=== PATIENT | female | born 1925 | race Caucasian/White ===

== ENCOUNTER 2016-10-29 13:00 | Emergency (ER) | payer OTHER, MEDICARE ==
[2016-10-29 13:20] VITALS: BP 140/75; PULSE 57; TEMP 97.5; BMI 22.2
--- NOTE | 2016-10-29 13:47 | PDOC ---
History of Present Illness - General Chief Complaint: Injury Stated Complaint: RIGHT ALEXANDER WOUND Time Seen by Provider: 10/29/16 13:31 - History of Present Illness Initial Comments: 10/29/16 14:08 Chief complaint: Injury right alexander History of present illness: Patient scraped her right alexander several days ago, is worried that it might be getting infected. Denies any pain or drainage. Physical exam reveals a 2 cm healing abrasion of the right alexander. There is a small amount of devitalized skin present but no surrounding erythema, induration , or drainage suggestive of infection The wound was gently deep related with healthy granulation tissue revealed. Bacitracin, sterile 4 x 4, and Celia dressings were applied. Wound care instructions were reviewed with the patient and her son. Rest and elevation, as well as scrupulous wound care were recommended. She is to follow-up with Dr. Mota, her primary physician, for wound checks to monitor healing. Past History - Past Medical History Allergies/Adverse Reactions: Allergies Allergy/AdvReac Type Severity Reaction Status Date / Time codeine [Codeine] Allergy Severe Vomiting,NA Verified 05/15/16 10:55 USEA oxycodone HCl [From Percodan] Allergy Severe VOMITING,NA Verified 05/15/16 10:55 USEA oxycodone terephthalate Allergy Severe VOMITING,NA Verified 05/15/16 10:55 [From Percodan] USEA aspirin [From Percodan] Allergy Verified 05/15/16 10:55 dexlansoprazole AdvReac Severe Abdominal Verified 05/15/16 10:55 [From Dexilant] Pain Home Medications: Ambulatory Orders Dorzolamide HCl/Timolol Maleat [Cosopt Eye Drops] 1 gtt OS BID 12/19/12 Cholecalciferol (Vitamin D3) [Vitamin D3] 2,000 unit PO DAILY capsule 10/07/13 Bimatoprost [Lumigan] 1 drop .ROUTE ASDIR 05/15/16 Diazepam [Valium] 2.5 mg PO BID PRN 05/15/16 Olmesartan Medoxomil [Benicar -] 40 mg PO DAILY 05/15/16 Amlodipine Besylate 10 mg PO DAILY tablet 05/30/16 Valacyclovir HCl [Valtrex -] 1,000 mg PO BID 10/29/16 Anemia: No Asthma: No Cancer: No Cardiac Disorders: Yes (A-FIB, SINUS BRADYCARDIA) CVA: No COPD: No CHF: No Dementia: No Diabetes: No GI Disorders: No Disorders: No HTN: Yes Hypercholesterolemia: No Liver Disease: No Psychiatric Problems: Yes (ANXIETY) Seizures: No Thyroid Disease: No Other medical history: GLAUCOMA,VERTIGO - Surgical History Abdominal Surgery: No Appendectomy: No Cardiac Surgery: No Cholecystectomy: No Lung Surgery: No Neurologic Surgery: No Orthopedic Surgery: Yes (RIGHT ANKLE FX 2004,NO SX) - Psycho/Social/Smoking Cessation Hx Anxiety: Yes (TAKES VALIUM PRN) Suicidal Ideation: No Smoking Status: No Smoking History: Never smoked Have you smoked in the past 12 months: No Number of Cigarettes Smoked Daily: 0 Hx Alcohol Use: No Drug/Substance Use Hx: No Substance Use Type: None Hx Substance Use Treatment: No *Physical Exam - Vital Signs Last Vital Signs Temp Pulse Resp BP Pulse Ox 97.5 F L 57 L 16 140/75 100 10/29/16 13:03 10/29/16 13:03 10/29/16 13:03 10/29/16 13:03 10/29/16 13:03 *DC/Admit/Observation/Transfer Diagnosis at time of Disposition: Abrasion - Discharge Dispostion Disposition: HOME Condition at time of disposition: Improved Admit: No - Referrals Referrals: Sina Mota MD [Primary Care Provider] - 3 days - Patient Instructions Printed Discharge Instructions: DI for Abrasion Additional Instructions: Rest and elevate leg Wound care as directed. See your primary physician for a wound check in 3 days. If there is increased pain, redness, swelling, or drainage from the wound, recheck sooner, either primary physician or return to the emergency room.
== END 2016-10-29 13:50 | disposition home or self-care (01) ==
LOC: FER 13:00
DX: S80.811A Abrasion, right lower leg, initial encounter (principal); W22.8XXA Striking against or struck by other objects, initial encounter; Y93.9 Activity, unspecified; Y92.9 Unspecified place or not applicable; I10 Essential (primary) hypertension; F41.9 Anxiety disorder, unspecified; I48.91 Unspecified atrial fibrillation
CPT/HCPCS: 99282-25

== ENCOUNTER 2017-03-04 17:40 | Inpatient (IN) | payer OTHER, MEDICARE ==
--- NOTE | 2017-03-04 17:50 | PDOC ---
History of Present Illness - General History Source: Patient, EMS, Old Records Exam Limitations: No Limitations - History of Present Illness Initial Comments: 03/04/17 18:11 The patient is an 89 year old female, with a significant past medical history of hypertension, sick sinus syndrome, spinal stenosis and anxiety, who presents to the emergency department via EMS after four episodes of hemoptysis at approximately 4:30 PM this afternoon. The patient reports that she was sitting outside on her porch this afternoon and got up to take out the recycling when she began coughing up blood. She initiated EMS and was brought to the ED for further evaluation. The patient states that she has not been coughing at all in the past couple of days. She does note that she had a pacemaker placed 6 weeks ago. The patient denies fever or chills. The patient denies chest pain or shortness of breath. The patient denies back pain. The patient's grandson is at the bedside. Allergies: Codeine, Oxycodone HCl, Oxycodone Terephthalate, Aspirin, Dexlansoprazole Past Surgical History: Pacemaker Placement; Right Ankle Fx. Social History: Non-smoker. Denies alcohol or drug use. PCP: Dr. Mota Office Clerk: Dr. Almeida <Tyra Cedeño - Last Filed: 03/04/17 18:11> <Avila Shah - Last Filed: 03/04/17 18:54> - General Chief Complaint: Hemoptysis Stated Complaint: COUGHED UP BLOOD Time Seen by Provider: 03/04/17 17:49 Past History <Tyra Cedeño - Last Filed: 03/04/17 18:11> - Past Medical History Anemia: No Asthma: No Cancer: No Cardiac Disorders: Yes (A-FIB, SINUS BRADYCARDIA) CVA: No COPD: No CHF: No Dementia: No Diabetes: No GI Disorders: No Disorders: No HTN: Yes Hypercholesterolemia: No Liver Disease: No Psychiatric Problems: Yes (ANXIETY) Seizures: No Thyroid Disease: No - Surgical History Abdominal Surgery: No Appendectomy: No Cardiac Surgery: No Cholecystectomy: No Lung Surgery: No Neurologic Surgery: No Orthopedic Surgery: Yes (RIGHT ANKLE FX 2003,NO SX) - Psycho/Social/Smoking Cessation Hx Anxiety: Yes (TAKES VALIUM PRN) Suicidal Ideation: No Smoking Status: No Smoking History: Never smoked Have you smoked in the past 12 months: No Number of Cigarettes Smoked Daily: 0 Hx Alcohol Use: No Drug/Substance Use Hx: No Substance Use Type: None Hx Substance Use Treatment: No <Avila Shah - Last Filed: 03/04/17 18:54> - Past Medical History Allergies/Adverse Reactions: Allergies Allergy/AdvReac Type Severity Reaction Status Date / Time codeine [Codeine] Allergy Severe Vomiting,NA Verified 05/15/16 10:55 USEA oxycodone HCl [From Percodan] Allergy Severe VOMITING,NA Verified 05/15/16 10:55 USEA oxycodone terephthalate Allergy Severe VOMITING,NA Verified 05/15/16 10:55 [From Percodan] USEA aspirin [From Percodan] Allergy Verified 05/15/16 10:55 dexlansoprazole AdvReac Severe Abdominal Verified 05/15/16 10:55 [From Dexilant] Pain Home Medications: Ambulatory Orders Dorzolamide HCl/Timolol Maleat [Cosopt Eye Drops] 1 gtt OP OU BID 12/19/12 Cholecalciferol (Vitamin D3) [Vitamin D3] 2,000 unit PO DAILY capsule 10/07/13 Olmesartan Medoxomil [Benicar -] 40 mg PO DAILY 05/15/16 Amlodipine Besylate 10 mg PO DAILY tablet 05/30/16 Valacyclovir HCl [Valtrex -] 1,000 mg PO BID 10/29/16 Bimatoprost [Lumigan] 1 drop OP OU HS bottle 11/02/16 Carboxymethylcellulose Sodium [Thera Tears] 1 drop OP OS QID bottle 11/02/16 Review of Systems - Review of Systems Able to Perform ROS?: Yes Comments:: 03/04/17 18:10 CONSTITUTIONAL: Absent: fever, chills, diaphoresis, generalized weakness, malaise, loss of appetite HEENT: Absent: rhinorrhea, nasal congestion, throat pain, throat swelling, difficulty swallowing, mouth swelling, ear pain, eye pain, visual Changes CARDIOVASCULAR: Absent: chest pain, syncope, palpitations, irregular heart rate, lightheadedness , peripheral edema RESPIRATORY: Present: +Hemoptysis Absent: cough, shortness of breath, dyspnea with exertion, orthopnea, wheezing, stridor GASTROINTESTINAL: Absent: abdominal pain, abdominal distension, nausea, vomiting, diarrhea, constipation, melena, hematochezia GENITOURINARY: Absent: dysuria, frequency, urgency, hesitancy, hematuria, flank pain, genital pain MUSCULOSKELETAL: Absent: myalgia, arthralgia, joint swelling SKIN: Absent: rash, itching, pallor HEMATOLOGIC/IMMUNOLOGIC: Absent: easy bleeding, easy bruising, lymphadenopathy, frequent infections ENDOCRINE: Absent: unexplained weight gain, unexplained weight loss, heat intolerance, cold intolerance NEUROLOGIC: Absent: headache, focal weakness or paresthesias, dizziness, unsteady gait, seizure, mental status changes, bladder or bowel incontinence PSYCHIATRIC: Absent: anxiety, depression, suicidal or homicidal ideation, hallucinations <Tyra Cedeño - Last Filed: 03/04/17 18:11> *Physical Exam - Physical Exam Comments: 03/04/17 18:10 GENERAL: Well developed, well nourished. Awake and alert. No acute distress. HEENT: Normocephalic, atraumatic. PERRLA, EOMI. No conjunctival pallor. Sclera are non-icteric. Moist mucous membranes. Oropharynx is clear. NECK: Supple. Full ROM. No JVD. Carotid pulses 2+ and symmetric, without bruits. No thyromegaly. No lymphadenopathy. CARDIOVASCULAR: Regular rate and rhythm. 2/4 systolic ejection murmur. No rubs or gallops. Distal pulses are 2+ and symmetric. PULMONARY: Left lower lobe crackles. No evidence of respiratory distress. No wheezing, rales or rhonchi. ABDOMINAL: Soft. Non-tender. Non-distended. No rebound or guarding. No organomegaly. Normoactive bowel sounds. MUSCULOSKELETAL: Normal range of motion at all joints. No bony deformities or tenderness. No CVA tenderness. EXTREMITIES: 2+ pitting edema of the bilateral lower extremities. No cyanosis. No clubbing. No calf tenderness. SKIN: Warm and dry. Normal capillary refill. No rashes. No jaundice. NEUROLOGICAL: Alert, awake, appropriate. Cranial nerves 2-12 intact. No deficits to light touch and temperature in face, upper extremities and lower extremities. No motor deficits in the in face, upper extremities and lower extremities. Normoreflexic in the upper and lower extremities. Normal speech. Toes are downgoing bilaterally. Gait deferred. PSYCHIATRIC: Cooperative. Good eye contact. Appropriate mood and affect. <Tyra Cedeño - Last Filed: 03/04/17 18:11> Medical Decision Making - Medical Decision Making 03/04/17 18:54 Labs pending Chest x-ray done, results pending Case discussed in detail with oncoming Emergency Physician including history, physical exam and ancillary studies. Oncoming Emergency Physician has assumed care for the patient and will complete the evaluation and treatment. <Avila Shah - Last Filed: 03/04/17 18:54> *DC/Admit/Observation/Transfer - Attestations Scribe Attestion: 03/04/17 17:55 Documentation prepared by Tyra Cedeño, acting as medical transcription editor for Avila Shah MD. <Tyra Cedeño - Last Filed: 03/04/17 18:11> <Avila Shah - Last Filed: 03/04/17 18:54> Diagnosis at time of Disposition: Hemoptysis - Discharge Dispostion Condition at time of disposition: Good - Referrals Referrals: Sina Mota MD [Primary Care Provider] -
[2017-03-04 19:27] LABS: URINE APPEARANCE Clear; URINE BILIRUBIN Negative (NEGATIVE); URINE BLOOD Negative (NEGATIVE); URINE GLUCOSE (UA) Negative (NEGATIVE); URINE KETONE Negative (NEGATIVE); URINE LEUK ESTERASE Negative (NEGATIVE); URINE NITRITE Negative (NEGATIVE); URINE PROTEIN Negative (NEGATIVE); URINE UROBILINOGEN 0.2 E.U/dl (0.2-1.0)
[2017-03-04 19:28] LABS: URINE COLOR YELLOW
[2017-03-04 19:29] LABS: ACTIVATED PTT 27.9 SECONDS (24.0-38.9)
[2017-03-04 19:31] LABS: EOSINOPHIL 4.7 % (0-4.5); MCH 29.5 pg (25.7-33.7); MCHC 33.7 g/dl (32.0-36.0); MEAN CELL VOLUME 87.5 fl (80-96); MEAN PLT VOLUME 9.3 fl (7.5-11.1); NEUTROPHILS 54.5 % (42.8-82.8); PLATELET COUNT 206 K/MM3 (134-434); RDW 13.5 % (11.6-15.6); WHITE BLOOD COUNT 6.5 K/mm3 (4.0-10.8)
[2017-03-04 19:32] LABS: ALBUMIN 4.2 g/dl (3.5-5.0); ALK PHOS 64 U/L (32-92); ANION GAP 6 (8-16); CALCIUM 9.5 mg/dl (8.4-10.2); CO2 25 mmol/L (22-28); CREATININE 0.8 mg/dl (0.6-1.3); GLUCOSE,RANDOM 114 mg/dl (74-106); SGOT/AST 20 U/L (10-42); SGPT/ALT 10 U/L (10-40); TOT PROT 7.6 g/dl (6.4-8.3)
[2017-03-04 19:33] LABS: INR 1.02 (0.82-1.09); PROTHROMBIN TIME (PATIENT) 11.4 SEC (10.2-13.0)
--- NOTE | 2017-03-04 19:34 | PDOC ---
*Physical Exam - Vital Signs Last Vital Signs Temp Pulse Resp BP Pulse Ox 97.9 F 61 17 125/76 97 03/04/17 17:49 03/04/17 17:49 03/04/17 17:49 03/04/17 17:49 03/04/17 17:49 ED Treatment Course - LABORATORY CBC & Chemistry Diagram: 03/04/17 18:45 03/04/17 18:45 - ADDITIONAL ORDERS Additional order review: Laboratory Results 03/04/17 19:00 Urine Color Yellow Urine Appearance Clear Urine pH 7.0 Ur Specific [place] 1.010 Urine Protein Negative Urine Glucose (UA) Negative Urine Ketones Negative Urine Blood Negative Urine Nitrite Negative Urine Bilirubin Negative Urine Urobilinogen 0.2 e.u/dl Ur Leukocyte Esterase Negative 03/04/17 18:45 RBC 4.61 MCV 87.5 MCHC 33.7 RDW 13.5 MPV 9.3 Neutrophils % 54.5 Lymphocytes % 30.7 Monocytes % 9.1 Eosinophils % 4.7 H Basophils % 1.0 Medical Decision Making - Medical Decision Making Care of this patient received from Dr. Shah. Laboratory evaluation shows normal white blood cell count with no other significant abnormality of the CBC. Sodium is minimally depressed at 129. Otherwise, chemistry profile is unremarkable. Portable chest x-ray revealed soft tissue fullness/density in the inferior aspect of the right hilum.T8 vertebral compression fracture/kyphoplasty with partial compression T9 CT angiogram performed to fully evaluate pulmonary abnormality and to rule out pulmonary embolus. No evidence of acute pulmonary embolism seen. Area of right hilum that was full on chest x-ray appears to be related to airspace infiltrate with air bronchograms in the medial segment of the right middle lobe. No other significant abnormalities seen on CT angiogram. Azithromycin 500 mg IV/Rocephin 1 g IV ordered Because of patient's advanced age, admission warranted: Dr. Mota is patient's PMD, [facility] contacted. 03/04/17 23:33 Patient reported lightheadedness a few minutes after azithromycin IV started. Have stopped infusion of azithromycin. Will continue with Rocephin 1 g IV Case discussed with Dr. Perez and patient will be admitted to Med/Surg bed. *DC/Admit/Observation/Transfer Diagnosis at time of Disposition: Hemoptysis Pneumonia Qualifiers: Pneumonia type: due to unspecified organism Laterality: right Lung location: middle lobe of lung Qualified Code(s): J18.1 - Lobar pneumonia, unspecified organism - Discharge Dispostion Condition at time of disposition: Stable Admit: Yes - Referrals - Patient Instructions - Post Discharge Activity
[2017-03-04 19:48] LABS: BILIRUBIN,TOTAL 0.5 mg/dl (0.2-1.0)
[2017-03-04] MEDS ORDERED: CEFTRIAXONE 1 GM in DEXTROSE 5%-WATER - 50 ML IVPB ONE (23:09)
[2017-03-04] MEDS ORDERED: AZITHROMYCIN IVPB 500 MG in DEXTROSE 5%-WATER - 250 ML IVPB ONE (23:09)
[2017-03-04] MEDS ORDERED: AZITHROMYCIN 500 MG VIAL IVPB ONE (23:11)
[2017-03-04] MEDS ORDERED: cefTRIAXone SODIUM 1 GM VIAL ONE (23:11)
[2017-03-04] MEDS ORDERED: PATIENT'S OWN MEDICATION (NON-FORMULARY) (Dorzolamide Hcl/Timolol Maleat [Cosopt Eye Drops OP SCH (23:45)
[2017-03-04] MEDS ORDERED: SODIUM CHLORIDE 1,000 ML IV SCH (23:45)
--- NOTE | 2017-03-05 00:45 | HP ---
CHIEF COMPLAINT: hemoptysis PCP: [facility] HISTORY OF PRESENT ILLNESS: This is an 89 year old female with a past medical history of HTN, Afib, SSS, spinal stenosis, anxiety who presented with hemoptysis today. Pt reports that she began to cough when taking out recycling and noted blood. Pt states she had no cough earlier today or yesterday but she did have cough "the other day". Pt denies chest pain, SOB. ER course was notable for: (1) WBC 6.5 (2) Sodium 129 (3) CT chest with RML infiltrate Recent Travel: Pt denies PAST MEDICAL HISTORY: HTN sick sinus syndrome spinal stenosis anxiety atrial fibrillation PAST SURGICAL HISTORY: PPM R ankle fracture 2003 Social History: Smoking: quit age 30s, smoked at home Alcohol: pt denies Drugs: pt denies Family History: mother age 89-dementia, had CVA and colon CA father age 49, [place] no siblings 3 children, one daughter with ESRD in her 40s, on dialysis Allergies codeine [Codeine] Allergy (Severe, Verified 05/15/16 10:55) Vomiting,NAUSEA oxycodone HCl [From Percodan] Allergy (Severe, Verified 05/15/16 10:55) VOMITING,NAUSEA oxycodone terephthalate [From Percodan] Allergy (Severe, Verified 05/15/16 10:55 ) VOMITING,NAUSEA aspirin [From Percodan] Allergy (Verified 05/15/16 10:55) dexlansoprazole [From Dexilant] Adverse Reaction (Severe, Verified 05/15/16 10: 55) Abdominal Pain HOME MEDICATIONS: 3 Medication Instructions Recorded Dorzolamide HCl/Timolol Maleat 1 gtt OP OU BID 12/19/12 [Cosopt Eye Drops] Cholecalciferol (Vitamin D3) 2,000 unit PO DAILY capsule 10/07/13 [Vitamin D3] Olmesartan Medoxomil [Benicar -] 40 mg PO DAILY 05/15/16 Amlodipine Besylate 10 mg PO DAILY tablet 05/30/16 Valacyclovir HCl [Valtrex -] 1,000 mg PO BID 10/29/16 Bimatoprost [Lumigan] 1 drop OP OU HS bottle 11/02/16 Carboxymethylcellulose Sodium 1 drop OP OS QID bottle 11/02/16 [Thera Tears] REVIEW OF SYSTEMS CONSTITUTIONAL: Absent: fever, chills, diaphoresis, generalized weakness, malaise, loss of appetite, weight change HEENT: Absent: rhinorrhea, nasal congestion, throat pain, throat swelling, difficulty swallowing, mouth swelling, ear pain, eye pain, visual changes CARDIOVASCULAR: Absent: chest pain, syncope, palpitations, irregular heart rate, lightheadedness , peripheral edema RESPIRATORY: Present: cough, hemoptysis Absent: shortness of breath, dyspnea with exertion, orthopnea, wheezing, stridor GASTROINTESTINAL: Absent: abdominal pain, abdominal distension, nausea, vomiting, diarrhea, constipation, melena, hematochezia GENITOURINARY: Absent: dysuria, frequency, urgency, hesitancy, hematuria, flank pain, genital pain MUSCULOSKELETAL: Absent: myalgia, arthralgia, joint swelling, back pain, neck pain SKIN: Absent: rash, itching, pallor HEMATOLOGIC/IMMUNOLOGIC: Absent: easy bleeding, easy bruising, lymphadenopathy, frequent infections ENDOCRINE: Absent: unexplained weight gain, unexplained weight loss, heat intolerance, cold intolerance NEUROLOGIC: Absent: headache, focal weakness or paresthesias, dizziness, unsteady gait, seizure, mental status changes, bladder or bowel incontinence PSYCHIATRIC: Absent: anxiety, depression, suicidal or homicidal ideation, hallucinations. PHYSICAL EXAMINATION Vital Signs - 24 hr 3 03/04/17 03/05/17 17:49 01:11 Temperature 97.9 F Pulse Rate 61 Pulse Rate [ 60 Left] Respiratory 17 18 Rate Blood Pressure 125/76 Blood Pressure 131/73 [Left] O2 Sat by Pulse 97 98 Oximetry (%) GENERAL: Awake, alert, and fully oriented, in no acute distress. HEAD: Normal with no signs of trauma. EYES: Pupils equal, round and reactive to light, extraocular movements intact, sclera anicteric, conjunctiva clear. No lid lag. EARS, NOSE, THROAT: Ears normal, nares patent, oropharynx clear without exudates. Moist mucous membranes. NECK: Normal range of motion, supple without lymphadenopathy, JVD, or masses. LUNGS: Breath sounds equal, clear to auscultation bilaterally. No wheezes, and no crackles. No accessory muscle use. HEART: Regular rate and rhythm, normal S1 and S2 without murmur, rub or gallop. ABDOMEN: Soft, nontender, not distended, normoactive bowel sounds, no guarding, no rebound, no masses. No hepatomegaly or splenomegaly. MUSCULOSKELETAL: Normal range of motion at all joints. No bony deformities or tenderness. No CVA tenderness. UPPER EXTREMITIES: 2+ pulses, warm, well-perfused. No cyanosis. No clubbing. No peripheral edema. LOWER EXTREMITIES: 2+ pulses, warm, well-perfused. No calf tenderness. 1+ edema. NEUROLOGICAL: Cranial nerves II-XII intact. Normal speech. Normal gait. PSYCHIATRIC: Cooperative. Good eye contact. Appropriate mood and affect. SKIN: Warm, dry, normal turgor, no rashes or lesions noted, normal capillary refill. Laboratory Results - last 24 hr 3 03/04/17 03/04/17 03/04/17 18:45 18:45 18:45 WBC 6.5 RBC 4.61 Hgb 13.6 Hct 40.3 MCV 87.5 MCHC 33.7 RDW 13.5 Plt Count 206 MPV 9.3 Neutrophils % 54.5 Lymphocytes % 30.7 Monocytes % 9.1 Eosinophils % 4.7 H Basophils % 1.0 INR 1.02 PTT (Actin FS) 27.9 Sodium 129 L Potassium 3.9 Chloride 98 Carbon Dioxide 25 Anion Gap 6 L BUN 17 Creatinine 0.8 Creat Clearance w eGFR > 60 Random Glucose 114 H Calcium 9.5 Total Bilirubin 0.5 D AST 20 ALT 10 Alkaline Phosphatase 64 D Total Protein 7.6 Albumin 4.2 Urine Color Urine Appearance Urine pH Ur Specific [place] Urine Protein Urine Glucose (UA) Urine Ketones Urine Blood Urine Nitrite Urine Bilirubin Urine Urobilinogen Ur Leukocyte Esterase 3 Urine Color Yellow 03/04/17 19:00 Urine Appearance Clear 03/04/17 19:00 Urine pH 7.0 (4.5-8) 03/04/17 19:00 Ur Specific [place] 1.010 (1.005-1.025) 03/04/17 19:00 Urine Protein Negative (NEGATIVE) 03/04/17 19:00 Urine Glucose (UA) Negative (NEGATIVE) 03/04/17 19:00 Urine Ketones Negative (NEGATIVE) 03/04/17 19:00 Urine Blood Negative (NEGATIVE) 03/04/17 19:00 Urine Nitrite Negative (NEGATIVE) 03/04/17 19:00 Urine Bilirubin Negative (NEGATIVE) 03/04/17 19:00 Ur Leukocyte Esterase Negative (NEGATIVE) 03/04/17 19:00 Radiology Results EXAM: CHEST CTA DATE OF SERVICE: 2017-03-04 20:52:08.0 THIS IS A PRELIMINARY REPORT FROM IMAGING CLINICAL RESEARCH SCIENTIST. IMAGES: 568 INDICATION: Hemoptysis. PE. COMPARISON: Chest x-ray two-view from the same date compared. FINDINGS: Axial spiral CT images were obtained with administration of IV contrast and multiplanar reconstruction images were generated. Multiplanar MIP images were also generated. 85 mL of Omnipaque 350 was administered. The neck base and the visualized portion of the thyroid glands are unremarkable. Pacemaker seen. Heart size is normal without pericardial effusion. Pulmonary arteries demonstrate homogeneous opacification with IV contrast. No intraluminal filling defects are seen in the pulmonary arterial tree to indicate acute pulmonary embolism. The thoracic aorta demonstrates unremarkable course and caliber. There is no evidence of aortic aneurysm or dissection. Both lungs are mildly hyperinflated. There is airspace infiltrate with air bronchograms involving the medial segment of the right middle lobe, corresponding to the density seen on the chest x-ray in the right infrahilar region. No endobronchial lesion is seen. No intrathoracic mass or lymphadenopathy seen. No pleural effusion or pneumothorax is identified. Small hiatal hernia is seen. Multiple small low-density cystic lesions scattered in the liver is not fully characterized without delayed views. There is complete collapse of the T8 vertebra. Moderate compression fracture of T9 vertebral body is seen with prior kyphoplasty. IMPRESSION: Cardiomegaly, status post pacemaker. Right middle lobe medial segment infiltrate seen, corresponding to the chest x-ray abnormality. No evidence of pulmonary embolism, thoracic aortic dissection or lung infiltrate. Suggestion of multiple hepatic cystic lesions, not fully characterized without delayed views. Chronic compression fractures of T8 and T9. THIS DOCUMENT HAS BEEN ELECTRONICALLY SIGNED Trung Pabon MD 03/04/2017 22:58 EST EXAM: CHEST PA & LAT DATE OF SERVICE: 2017-03-04 18:19:48.0 THIS IS A PRELIMINARY REPORT FROM IMAGING CLINICAL RESEARCH SCIENTIST. IMAGES: 2 INDICATION: Cough. COMPARISON: None FINDINGS: PA and lateral views are available. Lungs are hyperinflated indicating underlying COPD. Soft tissue fullness/density is seen in the inferior aspect of the right hilum, possible infiltrate or atelectasis. Infiltrating mass is not excluded. A double lead pacemaker is seen. Heart size normal without CHF. No infiltrate, pneumothorax or pleural effusion seen. Severe peripheral compression fracture. One of the compressed fractures is from kyphoplasty. Diffuse osteopenia is seen. IMPRESSION: COPD. Pacemaker. Right infrahilar soft tissue fullness as described. Follow up repeat chest x-ray or CT suggested for comparison. THIS DOCUMENT HAS BEEN ELECTRONICALLY SIGNED Trung Pabon MD 03/04/2017 21:47 EST ASSESSMENT/PLAN: 89yF with PMH HTN, SSS s/p PPM, afib, spinal stenosis, anxiety presented to ED for hemoptysis. She has been admitted for pneumonia. Pneumonia-Community acquired - ceftriaxone 1g given in ED, became dizzy with azithromycin, same stopped - cont ceftriaxone daily Hyponatremia - NS @ 100cc/hr - urine sodium, cr, osmo ordered HTN - cont home medications, well controlled with same. - pt states she takes a baby ASA daily despite above documented allergy. will order same. anxiety - cont home lexapro, valium glaucoma - cont home gtt DVT PPX - heparin 5000u BID FEN - NS @ 100cc/hr - BMP in am - regular diet Dispo: Pt currently requires inpatient admission for management of her emergent condition. Visit type - Emergency Visit Emergency Visit: Yes ED Registration Date: 03/04/17 Care time: The patient presented to the Emergency Department on the above date and was hospitalized for further evaluation of their emergent condition. - New Patient This patient is new to me today: Yes Date on this admission: 03/05/17 - Critical Care Critical Care patient: No
[2017-03-05] MEDS ORDERED: LORazepam 1 MG TABLET PO ONE (01:52)
[2017-03-05] MEDS ORDERED: LORazepam 0.5 MG TABLET ONE (02:01)
[2017-03-05 02:45] VITALS: BMI 23.8
--- NOTE | 2017-03-05 08:34 | PN ---
Physical Exam: SUBJECTIVE: Patient seen and examined, reports feeling well, denies any chest pain or shortness of breath. OBJECTIVE: patient is a 89 year old female with a past medical history of HTN, Afib, SSS, spinal stenosis, anxiety. patient was admitted from the emergency department for emergent condition. Vital Signs Period Temp Pulse Resp BP Sys/Harris Pulse Ox Last 24 Hr 97.4 F-97.5 F 59-60 18-18 108-131/48-73 98-99 GENERAL: The patient is awake, alert, and fully oriented, in no acute distress. HEAD: Normal with no signs of trauma. EYES: PERRL, extraocular movements intact, sclera anicteric, conjunctiva clear. No ptosis. ENT: Ears normal, nares patent, oropharynx clear without exudates, moist mucous membranes. NECK: Trachea midline, full range of motion, supple. LUNGS: Breath sounds equal, clear to auscultation bilaterally, diminished to bases, no wheezes, no crackles, no accessory muscle use. HEART: Regular rate and rhythm, S1, S2 without murmur, rub or gallop. ABDOMEN: Soft, nontender, nondistended, normoactive bowel sounds, no guarding, no rebound, no hepatosplenomegaly, no masses. EXTREMITIES: 2+ pulses, warm, well-perfused, no edema. NEUROLOGICAL: Cranial nerves II through XII grossly intact. Normal speech, gait not observed. PSYCH: Normal mood, normal affect. SKIN: Warm, dry, normal turgor, no rashes or lesions noted Active Medications Generic Name Dose Route Start Last Admin Trade Name Freq PRN Reason Stop Dose Admin Amlodipine Besylate 10 mg 03/05/17 10:00 Norvasc - PO DAILY [facility] Artificial Tears 1 drop 03/05/17 10:00 Artificial Tears OS QID DAVID Aspirin 81 mg 03/05/17 10:00 Ecotrin - PO DAILY [facility] Ceftriaxone Sodium 1 gm 03/05/17 22:00 Rocephin 1gm Ivpb (Pre-Docked) IVPB HS [facility] Cholecalciferol 2,000 unit 03/05/17 10:00 Vitamin D3 - PO DAILY DAVID Diazepam 2.5 mg 03/05/17 10:00 Valium - PO DAILY DAVID Dorzolamide HCl 1 drop 03/05/17 10:00 Trusopt 2% OU BID DAVID Escitalopram Oxalate 5 mg 03/05/17 10:00 Lexapro - PO DAILY DAVID Heparin Sodium (Porcine) 5,000 unit 03/05/17 10:00 Heparin - SQ BID DAVID Sodium Chloride 1,000 mls @ 100 mls/hr 03/04/17 23:45 03/05/17 00:39 Normal Saline - IV 100 mls/hr ASDIR DAVID Administration Latanoprost 1 drop 03/06/17 22:00 Xalatan 0.005% Eye Drops - OU HS DAVID Timolol Maleate 1 drop 03/05/17 10:00 Timoptic 0.5% OU BID DAVID Valsartan 320 mg 03/05/17 10:00 Diovan - PO DAILY [facility] IMAGING CTA of chest: negative for PE, right middle lobe consolidation vs atelactasis ASSESSMENT/PLAN: 1)pulm community acquired pneumonia - continue rocephin and zithromax - pt afebrile, no leukocytosis - urine antigens ordered - keep spo2 above 92% with supplemental o2 as needed - pulmonary consulted and following 2) card hypertension - continue norvsc and diovan - b/p at goal 3) psych anxiety - cont lexapro and prn valium 4) glaucoma - cont home gtt DVT PPX - heparin 5000u BID FEN - hyponatremia likely secondary to hypovolemia, serum sodium wnl after iv hydration - NS @ 75cc/hr - BMP in am - regular diet Dispo: Pt currently requires inpatient admission for management of her emergent condition. Visit type - Emergency Visit Emergency Visit: Yes ED Registration Date: 03/04/17 Care time: The patient presented to the Emergency Department on the above date and was hospitalized for further evaluation of their emergent condition. - New Patient This patient is new to me today: No - Critical Care Critical Care patient: No - Discharge Referral Referred to [facility] Med P.C.: No
--- NOTE | 2017-03-05 08:47 | PN ---
Progress Note (short form) - Note Progress Note: PULMONARY CONSULTATION DICTATED 03/05/17 IMP RML CONSOLIDATION HEMOPTYSIS SSS S/P PPM HTN ANXIETY HYPONATREMIA PLAN IV ANTIBIOTICS INHALED BRONCHODILATORS O2 PRN QUANTIFY HEMOPTYSIS SPUTUM C+S, CYTOLOGY MONITOR LYTES,NA FLEX BRONCH IF HEMOPTYSIS PERSIST F/U CHEST CT 6-8 WKS TO DOCUMENT RESOLUTION OF INFITRATE/CONSOLIDATION DR PARKS Problem List - Problems (1) Hemoptysis Code(s): R04.2 - HEMOPTYSIS (2) Pneumonia Code(s): J18.9 - PNEUMONIA, UNSPECIFIED ORGANISM Qualifiers: Pneumonia type: due to unspecified organism Laterality: right Lung location: middle lobe of lung Qualified Code(s): J18.1 - Lobar pneumonia, unspecified organism (3) Hypertension Code(s): I10 - ESSENTIAL (PRIMARY) HYPERTENSION (4) Hyponatremia Code(s): E87.1 - HYPO-OSMOLALITY AND HYPONATREMIA
[2017-03-05 09:11] LABS: BASOPHIL 1.3 % (0-2.0); EOSINOPHIL 4.6 % (0-4.5); MCH 29.7 pg (25.7-33.7); MCHC 33.5 g/dl (32.0-36.0); MEAN CELL VOLUME 88.8 fl (80-96); MEAN PLT VOLUME 9.9 fl (7.5-11.1); NEUTROPHILS 49.9 % (42.8-82.8); PLATELET COUNT 158 K/MM3 (134-434); RDW 13.3 % (11.6-15.6); WHITE BLOOD COUNT 5.1 K/mm3 (4.0-10.8)
--- NOTE | 2017-03-05 09:17 | EKG ---
Test Reason : Blood Pressure : / mmHG Vent. Rate : 066 BPM Atrial Rate : 066 BPM P-R Int : 180 ms QRS Dur : 078 ms QT Int : 414 ms P-R-T Axes : 083 008 003 degrees QTc Int : 434 ms POOR DATA QUALITY, INTERPRETATION MAY BE ADVERSELY AFFECTED SINUS RHYTHM WHEN COMPARED WITH ECG OF 18-MAY-2016 02:49, SINUS RHYTHM HAS REPLACED ATRIAL FLUTTER LEFT POSTERIOR FASCICULAR BLOCK IS NO LONGER PRESENT Confirmed by ROSEANNE BANUELOS MD ([id number]) on 03/05/2017 9:17:25 AM Referred By: MICHI Confirmed By:ROSEANNE BANUELOS MD
[2017-03-05 09:28] LABS: CREATININE 0.7 mg/dl (0.6-1.3); GLUCOSE,RANDOM 99 mg/dl (74-106); MAGNESIUM 1.9 mg/dL (1.8-2.4); PHOSPHOROUS 3.6 mg/dl (2.5-4.6)
[2017-03-05] MEDS: ARTIFICIAL TEARS (POLYVINYL ALCOHOL 1.4%) OPTH DROPS OS SCH ×4 (09:45→21:17)
[2017-03-05] MEDS: VALSARTAN 160 MG TABLET (UD) PO SCH (09:46)
[2017-03-05] MEDS: ASPIRIN COATED 81 MG TABLET.EC PO SCH (09:49)
[2017-03-05] MEDS: HEPARIN NA (PORCINE) 5,000 UNITS/ML 1ML VIAL SQ SCH ×2 (09:50→21:11)
[2017-03-05] MEDS: ESCITALOPRAM OXALATE 10 MG TABLET (FP) PO SCH (09:50)
[2017-03-05] MEDS: amLODIPine BESYLATE 10 MG TABLET (FP) PO SCH (09:50)
[2017-03-05] MEDS: TIMOLOL 0.5% OPHTHALMIC SOL 5 ML BOTTLE OU SCH ×2 (09:50→21:18)
[2017-03-05] MEDS: DORZOLAMIDE 2% HCL OPHTHALMIC SOLUTION 10 ML BOTTLE OU SCH ×2 (09:51→21:18)
[2017-03-05] MEDS: CHOLECALCIFEROL (VITAMIN D3) 1,000 UNIT TABLET (FP) PO SCH (09:52)
[2017-03-05] MEDS ORDERED: diazePAM 5 MG TABLET PO SCH (10:00)
[2017-03-05 11:32] LABS: ANION GAP 10 (8-16); CO2 23 mmol/L (22-28)
[2017-03-05] MEDS ORDERED: ACETAMINOPHEN 325 MG TABLET (FP) PO PRN (13:33)
[2017-03-05] MEDS ORDERED: ALBUTEROL SO4 2.5/IPRATROPIUM 0.5 INH SOL 3 ML VIAL.NEB. NEB PRN (13:33)
[2017-03-05] MEDS: SODIUM CHLORIDE 1,000 ML IV SCH (14:00)
[2017-03-05] MEDS: AZITHROMYCIN 250 MG TABLET (FP) PO SCH (15:37)
--- NOTE | 2017-03-05 20:23 | CONS ---
DATE OF CONSULTATION: 03/05/2017 PULMONARY CONSULTATION REFERRING PHYSICIAN: Lizzy Allen N.P. HISTORY OF PRESENT ILLNESS: The patient is an 89-year-old white female with a past medical history of hypertension, sick sinus syndrome status post permanent pacemaker, spinal stenosis, anxiety, history of smoking many, many years ago admitted to [facility] on March 04 with complaint of 4 episodes of hemoptysis. Patient states that 2 days prior to this she had a cough which was nonproductive. On the day of admission, she states she coughed up blood. She stated it was about a teaspoon, and color bright red. She had 3 other episodes after that. She went to [facility]. She underwent a CTA of the chest which revealed right middle lobe consolidation versus atelectasis. She was admitted to the floor. She was started on antibiotic therapy. She denies any chest pain, nausea, vomiting, diaphoresis. Denies any fevers, chills, previous history of hemoptysis. Denies any COPD or asthma in the past. There is no history of recent travel, there is no history of occupational exposure to chemicals or fumes. PAST MEDICAL HISTORY: Again includes pacemaker, a sick sinus syndrome, hypertension, spinal stenosis, anxiety, history of atrial fibrillation. REVIEW OF SYSTEMS: No orthopnea. No PND. No chest pain. No palpitations. Positive cough. Positive hemoptysis. No fever . No chills. No weight loss. No night sweats. No abdominal pain. No lower extremity edema. CURRENT MEDICATIONS: Include Diovan, Rocephin, heparin, lexapro, valium, Timoptic, Trusopt, Norvasc, artificial tears, normal saline, Ecotrin, Xalatan, ceftriaxone. PHYSICAL EXAMINATION: General: The patient is an elderly white female, well-developed, alert, in no acute distress. Vital signs: She is currently afebrile. Blood pressure 108/48, respiratory rate 18, O2 saturation is 95% on room air. HEENT: Head is normocephalic, atraumatic. Neck: Supple. Heart: Regular. S1, S2. Chest: A few crackles bibasilar at the bases. Abdomen: Soft. Bowel sounds positive. Extremities: No cyanosis, edema. LABORATORY: Sodium on admission was 129 currently 139, BUN 13, creatinine 0.7. WBC is 5.1, hemoglobin 11.9, hematocrit 35.6, with platelet count of 158,000. INR is 1.02. Chest CT, there is no evidence of pulmonary embolism. There is some right middle lobe consolidation/atelectasis, no adenopathy. IMPRESSION: 1. Hemoptysis, possibly secondary to pneumonia, right middle lobe. 2. Sick sinus syndrome status post permanent pacemaker. 3. Anxiety. 4. Hypertension. PLAN: Continue antibiotic therapy, quantify his hemoptysis. Sputum for C&S, cytology. Also obtain followup chest CT in approximately 4-6 weeks to document resolution of infiltrate. If patient should develop further hemoptysis, recommend flexible bronchoscopy. EMMANUEL PARKS M.D. [facility]/[id number]
[2017-03-05] MEDS ORDERED: PT OWN MED DRAWER 7, Y5N ONE (21:07)
[2017-03-05] MEDS: cefTRIAXone 1 GM/50 ML BAG (PRE-DOCKED) IVPB SCH (21:11)
[2017-03-05] MEDS: diazePAM 5 MG TABLET PO PRN (21:11)
[2017-03-05] MEDS ORDERED: CEFTRIAXONE 1 GM in DEXTROSE 5%-WATER - 50 ML IVPB SCH (22:00)
--- NOTE | 2017-03-06 06:51 | PN ---
Progress Note, Physician History of Present Illness: PULMONARRY ALERT,HAD 2 EPISODES OF HEMOPTYSIS YESTERDAY,SO FAR NONE TODAY.PT FEELING BETTER ,-SOB - Current Medication List Current Medications: Active Medications Acetaminophen (Tylenol -) 650 mg PO Q4H PRN PRN Reason: FEVER OR PAIN Albuterol/Ipratropium (Duoneb -) 1 amp NEB Q6H PRN PRN Reason: SHORTNESS OF BREATH Last Admin: 03/05/17 14:35 Dose: 1 amp Amlodipine Besylate (Norvasc -) 10 mg PO DAILY [facility] Last Admin: 03/05/17 09:50 Dose: 10 mg Artificial Tears (Artificial Tears) 1 drop OS QID [facility] Last Admin: 03/05/17 21:17 Dose: 1 drop Aspirin (Ecotrin -) 81 mg PO DAILY [facility] Last Admin: 03/05/17 09:49 Dose: 81 mg Azithromycin (Zithromax -) 250 mg PO DAILY [facility] Stop: 03/08/17 14:00 Last Admin: 03/05/17 15:37 Dose: 250 mg Ceftriaxone Sodium (Rocephin 1gm Ivpb (Pre-Docked)) 1 gm IVPB [facility] Last Admin: 03/05/17 21:11 Dose: 1 gm Cholecalciferol (Vitamin D3 -) 2,000 unit PO DAILY [facility] Last Admin: 03/05/17 09:52 Dose: 2,000 unit Diazepam (Valium -) 2.5 mg PO DAILY PRN PRN Reason: ANXIETY Last Admin: 03/05/17 21:11 Dose: 2.5 mg Dorzolamide HCl (Trusopt 2%) 1 drop OU BID [facility] Last Admin: 03/05/17 21:18 Dose: 1 drop Escitalopram Oxalate (Lexapro -) 5 mg PO DAILY [facility] Last Admin: 03/05/17 09:50 Dose: 5 mg Heparin Sodium (Porcine) (Heparin -) 5,000 unit SQ BID [facility] Last Admin: 03/05/17 21:11 Dose: 5,000 unit Sodium Chloride (Normal Saline -) 1,000 mls @ 42 mls/hr IV ASDIR [facility] Last Admin: 03/05/17 14:00 Dose: 42 mls/hr Latanoprost (Xalatan 0.005% Eye Drops -) 1 drop OU HS [facility] Timolol Maleate (Timoptic 0.5%) 1 drop OU BID [facility] Last Admin: 03/05/17 21:18 Dose: 1 drop Valsartan (Diovan -) 320 mg PO DAILY [facility] Last Admin: 03/05/17 09:46 Dose: 320 mg - Objective Vital Signs: Vital Signs Temperature 99.1 F 03/06/17 06:00 Pulse Rate 60 03/06/17 06:00 Respiratory Rate 18 03/06/17 06:00 Blood Pressure 122/54 03/06/17 06:00 O2 Sat by Pulse Oximetry (%) 94 L 03/06/17 06:37 Constitutional: Yes: Well Nourished, Calm Eyes: Yes: WNL HENT: Yes: WNL Neck: Yes: WNL Cardiovascular: Yes: Regular Rate and Rhythm, S1, S2 Respiratory: Yes: Rales (FEW BIBASILAR CRACKLES) Gastrointestinal: Yes: Normal Bowel Sounds, Soft Extremities: Yes: WNL Edema: No Labs: Problem List - Problems (1) Hemoptysis Code(s): R04.2 - HEMOPTYSIS (2) Pneumonia Code(s): J18.9 - PNEUMONIA, UNSPECIFIED ORGANISM Qualifiers: Pneumonia type: due to unspecified organism Laterality: right Lung location: middle lobe of lung Qualified Code(s): J18.1 - Lobar pneumonia , unspecified organism (3) Hypertension Code(s): I10 - ESSENTIAL (PRIMARY) HYPERTENSION (4) Hyponatremia Code(s): E87.1 - HYPO-OSMOLALITY AND HYPONATREMIA Assessment/Plan IMP RML CONSOLIDATION HEMOPTYSIS SSS S/P PPM HTN ANXIETY HYPONATREMIA IMPROVED PLAN IV ANTIBIOTICS INHALED BRONCHODILATORS O2 PRN QUANTIFY HEMOPTYSIS FLEX BRONCH IF HEMOPTYSIS PERSIST F/U CHEST CT 6-8 WKS TO DOCUMENT RESOLUTION OF INFITRATE/CONSOLIDATION DR PARKS Problem List - Problems (1) Hemoptysis Code(s): R04.2 - HEMOPTYSIS (2) Pneumonia Code(s): J18.9 - PNEUMONIA, UNSPECIFIED ORGANISM Qualifiers: Pneumonia type: due to unspecified organism Laterality: right Lung location: middle lobe of lung Qualified Code(s): J18.1 - Lobar pneumonia, unspecified organism (3) Hypertension Code(s): I10 - ESSENTIAL (PRIMARY) HYPERTENSION (4) Hyponatremia Code(s): E87.1 - HYPO-OSMOLALITY AND HYPONATREMIA
[2017-03-06 08:54] LABS: ANION GAP 7 (8-16); CALCIUM 8.8 mg/dl (8.4-10.2); CO2 24 mmol/L (22-28); CREATININE 0.7 mg/dl (0.6-1.3); GLUCOSE,RANDOM 87 mg/dl (74-106); MAGNESIUM 1.8 mg/dL (1.8-2.4); PHOSPHOROUS 3.7 mg/dl (2.5-4.6)
[2017-03-06] MEDS: ARTIFICIAL TEARS (POLYVINYL ALCOHOL 1.4%) OPTH DROPS OS SCH ×4 (09:14→21:47)
[2017-03-06] MEDS: CHOLECALCIFEROL (VITAMIN D3) 1,000 UNIT TABLET (FP) PO SCH (09:15)
[2017-03-06] MEDS: VALSARTAN 160 MG TABLET (UD) PO SCH (09:15)
[2017-03-06] MEDS: diazePAM 5 MG TABLET PO PRN ×2 (09:16→21:44)
[2017-03-06] MEDS: AZITHROMYCIN 250 MG TABLET (FP) PO SCH (09:16)
[2017-03-06 09:32] LABS: BASOPHIL 1.2 % (0-2.0); MCH 29.9 pg (25.7-33.7); MCHC 33.6 g/dl (32.0-36.0); MEAN CELL VOLUME 88.9 fl (80-96); MEAN PLT VOLUME 9.6 fl (7.5-11.1); NEUTROPHILS 47.7 % (42.8-82.8); PLATELET COUNT 163 K/MM3 (134-434); RDW 13.2 % (11.6-15.6)
[2017-03-06] MEDS ORDERED: POTASSIUM CHLORIDE TABS 20 MEQ TABLET.ER (FP) PO ONE (09:45)
[2017-03-06] MEDS: ASPIRIN COATED 81 MG TABLET.EC PO SCH (10:04)
[2017-03-06] MEDS: HEPARIN NA (PORCINE) 5,000 UNITS/ML 1ML VIAL SQ SCH ×2 (10:04→21:46)
[2017-03-06] MEDS: TIMOLOL 0.5% OPHTHALMIC SOL 5 ML BOTTLE OU SCH ×2 (10:05→21:47)
[2017-03-06] MEDS: DORZOLAMIDE 2% HCL OPHTHALMIC SOLUTION 10 ML BOTTLE OU SCH ×2 (10:05→21:46)
[2017-03-06] MEDS: amLODIPine BESYLATE 10 MG TABLET (FP) PO SCH (10:05)
[2017-03-06] MEDS: ESCITALOPRAM OXALATE 10 MG TABLET (FP) PO SCH (10:05)
[2017-03-06] MEDS: SODIUM CHLORIDE 1,000 ML IV SCH (13:53)
--- NOTE | 2017-03-06 17:06 | PN ---
Physical Exam: SUBJECTIVE: Patient seen and examined, reports feeling better, does report 2 episodes of hemopytsis on the overnight OBJECTIVE:patient is a 89 year old female with a past medical history of HTN, Afib, SSS, spinal stenosis, anxiety. patient was admitted from the emergency department for emergent condition. Vital Signs Period Temp Pulse Resp BP Sys/Harris Pulse Ox Last 24 Hr 97.7 F-99.1 F 60-60 16-18 100-138/48-65 94-98 GENERAL: The patient is awake, alert, and fully oriented, in no acute distress. HEAD: Normal with no signs of trauma. EYES: PERRL, extraocular movements intact, sclera anicteric, conjunctiva clear. No ptosis. ENT: Ears normal, nares patent, oropharynx clear without exudates, moist mucous membranes. NECK: Trachea midline, full range of motion, supple. LUNGS: Breath sounds equal, clear to auscultation bilaterally, diminished to bases, no wheezes, no crackles, no accessory muscle use. HEART: Regular rate and rhythm, S1, S2 without murmur, rub or gallop. ABDOMEN: Soft, nontender, nondistended, normoactive bowel sounds, no guarding, no rebound, no hepatosplenomegaly, no masses. EXTREMITIES: 2+ pulses, warm, well-perfused, no edema. NEUROLOGICAL: Cranial nerves II through XII grossly intact. Normal speech, gait not observed. PSYCH: Normal mood, normal affect. SKIN: Warm, dry, normal turgor, no rashes or lesions noted Laboratory Results - last 24 hr 03/05/17 03/06/17 03/06/17 16:15 07:30 07:30 WBC 6.0 RBC 3.88 Hgb 11.6 Hct 34.4 MCV 88.9 MCHC 33.6 RDW 13.2 Plt Count 163 MPV 9.6 Neutrophils % 47.7 Lymphocytes % 38.7 Monocytes % 8.4 Eosinophils % 4.0 Basophils % 1.2 Sodium 136 Potassium 3.3 L Chloride 105 Carbon Dioxide 24 Anion Gap 7 L BUN 14 Creatinine 0.7 Random Glucose 87 Calcium 8.8 Phosphorus 3.7 Magnesium 1.8 Urine Osmolality 183 L Active Medications Generic Name Dose Route Start Last Admin Trade Name Freq PRN Reason Stop Dose Admin Acetaminophen 650 mg 03/05/17 13:33 Tylenol - PO Q4H PRN FEVER OR PAIN Albuterol/Ipratropium 1 amp 03/05/17 13:33 03/05/17 14:35 Duoneb - NEB 1 amp Q6H PRN Administration SHORTNESS OF BREATH Amlodipine Besylate 10 mg 03/05/17 10:00 03/06/17 10:05 Norvasc - PO 10 mg DAILY DAVID Administration Artificial Tears 1 drop 03/05/17 10:00 03/06/17 13:52 Artificial Tears OS 1 drop QID DAVID Administration Aspirin 81 mg 03/05/17 10:00 03/06/17 10:04 Ecotrin - PO 81 mg DAILY [facility] Administration Azithromycin 250 mg 03/05/17 13:30 03/06/17 09:16 Zithromax - PO 03/08/17 14:00 250 mg DAILY [facility]ID Administration Ceftriaxone Sodium 1 gm 03/05/17 22:00 03/05/17 21:11 Rocephin 1gm Ivpb (Pre-Docked) IVPB 1 gm HS [facility] Administration Cholecalciferol 2,000 unit 03/05/17 10:00 03/06/17 09:15 Vitamin D3 - PO 2,000 unit DAILY [facility] Administration Diazepam 2.5 mg 03/05/17 13:41 03/06/17 09:16 Valium - PO 2.5 mg DAILY PRN Administration ANXIETY Dorzolamide HCl 1 drop 03/05/17 10:00 03/06/17 10:05 Trusopt 2% OU 1 drop BID DAVID Administration Escitalopram Oxalate 5 mg 03/05/17 10:00 03/06/17 10:05 Lexapro - PO 5 mg DAILY [facility] Administration Heparin Sodium (Porcine) 5,000 unit 03/05/17 10:00 03/06/17 10:04 Heparin - SQ 5,000 unit BID DAVID Administration Sodium Chloride 1,000 mls @ 42 mls/hr 03/05/17 13:30 03/06/17 13:53 Normal Saline - IV 42 mls/hr ASDIR DAVID Administration Latanoprost 1 drop 03/06/17 22:00 Xalatan 0.005% Eye Drops - OU HS DAVID Potassium Chloride 20 meq 03/06/17 17:15 K-Dur - PO DAILY [facility] Timolol Maleate 1 drop 03/05/17 10:00 03/06/17 10:05 Timoptic 0.5% OU 1 drop BID [facility]ID Administration Valsartan 320 mg 03/05/17 10:00 03/06/17 09:15 Diovan - PO 320 mg DAILY [facility]ID Administration Microbiology 03/05/17 16:15 Urine For Antigen Detection Legionella Antigen - Final, negative 03/05/17 16:15 Urine For Antigen Detection Streptococcus pneumoniae Antigen (M - Final, negative 03/04/17 18:45 Blood - Peripheral Venous Blood Culture - Preliminary NO GROWTH OBTAINED AFTER 24 HOURS, INCUBATION TO CONTINUE FOR 4 DAYS. 03/04/17 18:30 Blood - Peripheral Venous Blood Culture - Preliminary NO GROWTH OBTAINED AFTER 24 HOURS, INCUBATION TO CONTINUE FOR 4 DAYS. IMAGING CTA of chest: negative for PE, right middle lobe consolidation vs atelactasis ASSESSMENT/PLAN: 1)pulm community acquired pneumonia - continue rocephin and zithromax - pt afebrile, no leukocytosis - urine antigens ntd - keep spo2 above 92% with supplemental o2 as needed - pulmonary consulted and following 2) card hypertension - continue norvsc and diovan - b/p at goal 3) psych anxiety - cont lexapro and prn valium 4) glaucoma - cont home gtt DVT PPX - heparin 5000u BID FEN - hyponatremia likely secondary to hypovolemia, serum sodium wnl after iv hydration - BMP in am - regular diet Dispo: Pt currently requires inpatient admission for management of her emergent condition. Visit type - Emergency Visit Emergency Visit: Yes ED Registration Date: 03/04/17 Care time: The patient presented to the Emergency Department on the above date and was hospitalized for further evaluation of their emergent condition. - New Patient This patient is new to me today: No - Critical Care Critical Care patient: No - Discharge Referral Referred to [facility] Med P.C.: No
[2017-03-06] MEDS: POTASSIUM CHLORIDE TABS 20 MEQ TABLET.ER (FP) PO SCH (17:24)
[2017-03-06] MEDS: RANITIDINE HCL 150 MG TABLET (FP) PO SCH (21:44)
[2017-03-06] MEDS: cefTRIAXone 1 GM/50 ML BAG (PRE-DOCKED) IVPB SCH (21:46)
[2017-03-06] MEDS: LATANOPROST 0.005% OPHTH SOLN 2.5ML BOTTLE OU SCH (21:47)
--- NOTE | 2017-03-07 07:31 | PN ---
Progress Note, Physician History of Present Illness: PULMONARY ALERT,FEELING BETTER,+ TRACE HEMOPTYSIS (DARK HEME) - Current Medication List Current Medications: Active Medications Acetaminophen (Tylenol -) 650 mg PO Q4H PRN PRN Reason: FEVER OR PAIN Albuterol/Ipratropium (Duoneb -) 1 amp NEB Q6H PRN PRN Reason: SHORTNESS OF BREATH Last Admin: 03/05/17 14:35 Dose: 1 amp Amlodipine Besylate (Norvasc -) 10 mg PO DAILY [facility] Last Admin: 03/06/17 10:05 Dose: 10 mg Artificial Tears (Artificial Tears) 1 drop OS QID [facility] Last Admin: 03/06/17 21:47 Dose: 1 drop Aspirin (Ecotrin -) 81 mg PO DAILY [facility] Last Admin: 03/06/17 10:04 Dose: 81 mg Azithromycin (Zithromax -) 250 mg PO DAILY [facility] Stop: 03/08/17 14:00 Last Admin: 03/06/17 09:16 Dose: 250 mg Ceftriaxone Sodium (Rocephin 1gm Ivpb (Pre-Docked)) 1 gm IVPB [facility] Last Admin: 03/06/17 21:46 Dose: 1 gm Cholecalciferol (Vitamin D3 -) 2,000 unit PO DAILY [facility] Last Admin: 03/06/17 09:15 Dose: 2,000 unit Diazepam (Valium -) 2.5 mg PO DAILY PRN PRN Reason: ANXIETY Last Admin: 03/06/17 21:44 Dose: 2.5 mg Dorzolamide HCl (Trusopt 2%) 1 drop OU BID [facility] Last Admin: 03/06/17 21:46 Dose: 1 drop Escitalopram Oxalate (Lexapro -) 5 mg PO DAILY [facility] Last Admin: 03/06/17 10:05 Dose: 5 mg Heparin Sodium (Porcine) (Heparin -) 5,000 unit SQ BID [facility] Last Admin: 03/06/17 21:46 Dose: 5,000 unit Latanoprost (Xalatan 0.005% Eye Drops -) 1 drop OU HS [facility] Last Admin: 03/06/17 21:47 Dose: 1 drop Potassium Chloride (K-Dur -) 20 meq PO DAILY [facility] Last Admin: 03/06/17 17:24 Dose: 20 meq Ranitidine HCl (Zantac -) 150 mg PO BID [facility] Last Admin: 03/06/17 21:44 Dose: 150 mg Timolol Maleate (Timoptic 0.5%) 1 drop OU BID [facility] Last Admin: 03/06/17 21:47 Dose: 1 drop Valsartan (Diovan -) 320 mg PO DAILY [facility] Last Admin: 03/06/17 09:15 Dose: 320 mg - Objective Vital Signs: Vital Signs Temperature 98.1 F 03/07/17 06:00 Pulse Rate 58 L 03/07/17 06:00 Respiratory Rate 19 03/07/17 06:00 Blood Pressure 118/42 03/07/17 06:00 O2 Sat by Pulse Oximetry (%) 99 03/07/17 06:44 Constitutional: Yes: Well Nourished, Calm Eyes: Yes: WNL HENT: Yes: WNL Neck: Yes: WNL Cardiovascular: Yes: Regular Rate and Rhythm, S1, S2 Respiratory: Yes: Rales (FEW BIBASILAR CRACKLES) Gastrointestinal: Yes: Normal Bowel Sounds, Soft Extremities: Yes: WNL Edema: No Labs: CBC, BMP 03/06/17 07:30 03/06/17 07:30 INR, PTT INR 1.02 (0.82-1.09) 03/04/17 18:45 Problem List - Problems (1) Hemoptysis Code(s): R04.2 - HEMOPTYSIS (2) Pneumonia Code(s): J18.9 - PNEUMONIA, UNSPECIFIED ORGANISM Qualifiers: Pneumonia type: due to unspecified organism Laterality: right Lung location: middle lobe of lung Qualified Code(s): J18.1 - Lobar pneumonia , unspecified organism (3) Hypertension Code(s): I10 - ESSENTIAL (PRIMARY) HYPERTENSION (4) Hyponatremia Code(s): E87.1 - HYPO-OSMOLALITY AND HYPONATREMIA Assessment/Plan IMP RML CONSOLIDATION HEMOPTYSIS IMPROVING SSS S/P PPM HTN ANXIETY HYPONATREMIA IMPROVED PLAN ANTIBIOTICS INHALED BRONCHODILATORS O2 PRN FLEX BRONCH IF HEMOPTYSIS PERSIST F/U CHEST CT 6-8 WKS TO DOCUMENT RESOLUTION OF INFILTRATE/CONSOLIDATION DR PARKS Problem List - Problems (1) Hemoptysis Code(s): R04.2 - HEMOPTYSIS (2) Pneumonia Code(s): J18.9 - PNEUMONIA, UNSPECIFIED ORGANISM Qualifiers: Pneumonia type: due to unspecified organism Laterality: right Lung location: middle lobe of lung Qualified Code(s): J18.1 - Lobar pneumonia, unspecified organism (3) Hypertension Code(s): I10 - ESSENTIAL (PRIMARY) HYPERTENSION (4) Hyponatremia Code(s): E87.1 - HYPO-OSMOLALITY AND HYPONATREMIA
[2017-03-07] MEDS: CHOLECALCIFEROL (VITAMIN D3) 1,000 UNIT TABLET (FP) PO SCH (10:13)
[2017-03-07] MEDS: VALSARTAN 160 MG TABLET (UD) PO SCH (10:13)
[2017-03-07] MEDS: ASPIRIN COATED 81 MG TABLET.EC PO SCH (10:14)
[2017-03-07] MEDS: ARTIFICIAL TEARS (POLYVINYL ALCOHOL 1.4%) OPTH DROPS OS SCH ×4 (10:14→21:37)
[2017-03-07] MEDS: RANITIDINE HCL 150 MG TABLET (FP) PO SCH ×2 (10:15→21:38)
[2017-03-07] MEDS: amLODIPine BESYLATE 10 MG TABLET (FP) PO SCH (10:15)
[2017-03-07] MEDS: DORZOLAMIDE 2% HCL OPHTHALMIC SOLUTION 10 ML BOTTLE OU SCH ×2 (10:15→21:38)
[2017-03-07] MEDS: HEPARIN NA (PORCINE) 5,000 UNITS/ML 1ML VIAL SQ SCH ×2 (10:15→21:37)
[2017-03-07] MEDS: ESCITALOPRAM OXALATE 10 MG TABLET (FP) PO SCH (10:16)
[2017-03-07] MEDS: TIMOLOL 0.5% OPHTHALMIC SOL 5 ML BOTTLE OU SCH ×2 (10:16→21:37)
[2017-03-07] MEDS: POTASSIUM CHLORIDE TABS 20 MEQ TABLET.ER (FP) PO SCH (10:16)
[2017-03-07] MEDS: AZITHROMYCIN 250 MG TABLET (FP) PO SCH (10:17)
--- NOTE | 2017-03-07 14:33 | PN ---
Physical Exam: SUBJECTIVE: Patient seen and examined, reports feeling well, moist cough, rust colored sputum noted in tissue OBJECTIVE: patient is a 89 year old female with a past medical history of HTN, Afib, SSS, spinal stenosis, anxiety. patient was admitted from the emergency department for emergent condition. Vital Signs Period Temp Pulse Resp BP Sys/Harris Pulse Ox Last 24 Hr 97.7 F-98.2 F 58-62 16-19 118-133/42-66 98-100 PHYSICAL EXAMINATION GENERAL: The patient is awake, alert, and fully oriented, in no acute distress. HEAD: Normal with no signs of trauma. EYES: PERRL, extraocular movements intact, sclera anicteric, conjunctiva clear. No ptosis. ENT: Ears normal, nares patent, oropharynx clear without exudates, moist mucous membranes. NECK: Trachea midline, full range of motion, supple. LUNGS: Breath sounds equal, clear to auscultation bilaterally, diminished to bases, no wheezes, no crackles, no accessory muscle use. HEART: Regular rate and rhythm, S1, S2 without murmur, rub or gallop. ABDOMEN: Soft, nontender, nondistended, normoactive bowel sounds, no guarding, no rebound, no hepatosplenomegaly, no masses. EXTREMITIES: 2+ pulses, warm, well-perfused, no edema. NEUROLOGICAL: Cranial nerves II through XII grossly intact. Normal speech, gait not observed. PSYCH: Normal mood, normal affect. SKIN: Warm, dry, normal turgor, no rashes or lesions noted Active Medications Generic Name Dose Route Start Last Admin Trade Name Freq PRN Reason Stop Dose Admin Acetaminophen 650 mg 03/05/17 13:33 Tylenol - PO Q4H PRN FEVER OR PAIN Albuterol/Ipratropium 1 amp 03/05/17 13:33 03/05/17 14:35 Duoneb - NEB 1 amp Q6H PRN Administration SHORTNESS OF BREATH Amlodipine Besylate 10 mg 03/05/17 10:00 03/07/17 10:15 Norvasc - PO 10 mg DAILY DAVID Administration Artificial Tears 1 drop 03/05/17 10:00 03/07/17 10:14 Artificial Tears OS 1 drop QID DAVID Administration Aspirin 81 mg 03/05/17 10:00 03/07/17 10:14 Ecotrin - PO 81 mg DAILY DAVID Administration Azithromycin 250 mg 03/05/17 13:30 03/07/17 10:17 Zithromax - PO 03/08/17 14:00 250 mg DAILY DAVID Administration Ceftriaxone Sodium 1 gm 03/05/17 22:00 03/06/17 21:46 Rocephin 1gm Ivpb (Pre-Docked) IVPB 1 gm HS DAVID Administration Cholecalciferol 2,000 unit 03/05/17 10:00 03/07/17 10:13 Vitamin D3 - PO 2,000 unit DAILY DAVID Administration Diazepam 2.5 mg 03/05/17 13:41 03/06/17 21:44 Valium - PO 2.5 mg DAILY PRN Administration ANXIETY Dorzolamide HCl 1 drop 03/05/17 10:00 03/07/17 10:15 Trusopt 2% OU 1 drop BID DAVID Administration Escitalopram Oxalate 5 mg 03/05/17 10:00 03/07/17 10:16 Lexapro - PO 5 mg DAILY DAVID Administration Heparin Sodium (Porcine) 5,000 unit 03/05/17 10:00 03/07/17 10:15 Heparin - SQ 5,000 unit BID DAVID Administration Latanoprost 1 drop 03/06/17 22:00 03/06/17 21:47 Xalatan 0.005% Eye Drops - OU 1 drop HS DAVID Administration Potassium Chloride 20 meq 03/06/17 17:15 03/07/17 10:16 K-Dur - PO 20 meq DAILY DAVID Administration Ranitidine HCl 150 mg 03/06/17 22:00 03/07/17 10:15 Zantac - PO 150 mg BID DAVID Administration Timolol Maleate 1 drop 03/05/17 10:00 03/07/17 10:16 Timoptic 0.5% OU 1 drop BID DAVID Administration Valsartan 320 mg 03/05/17 10:00 03/07/17 10:13 Diovan - PO 320 mg DAILY DAVID Administration Microbiology 03/05/17 13:00 Sputum - Expectorated Sputum Culture - Preliminary Presumptive Mssa (Pbp2a Neg) 03/04/17 18:45 Blood - Peripheral Venous Blood Culture - Preliminary NO GROWTH OBTAINED AFTER 48 HOURS, INCUBATION TO CONTINUE FOR 3 DAYS. 03/04/17 18:30 Blood - Peripheral Venous Blood Culture - Preliminary NO GROWTH OBTAINED AFTER 48 HOURS, INCUBATION TO CONTINUE FOR 3 DAYS. 03/05/17 16:15 Urine For Antigen Detection Legionella Antigen - Final, negative 03/05/17 16:15 Urine For Antigen Detection Streptococcus pneumoniae Antigen (M - Final, negative IMAGING CTA of chest: negative for PE, right middle lobe consolidation vs atelactasis ASSESSMENT/PLAN: 1)pulm community acquired pneumonia - continue rocephin and zithromax, prelim MSSA sputum culture pending final to narrow down abx - pt afebrile, no leukocytosis - keep spo2 above 92% with supplemental o2 as needed - pulmonary consulted and following 2) card hypertension - continue norvsc and diovan - b/p at goal 3) psych anxiety - cont lexapro and prn valium 4) glaucoma - cont home gtt DVT PPX - heparin 5000u BID FEN - hyponatremia resolved, likely secondary to hypovolemia, serum sodium wnl after iv hydration - BMP in am - regular diet Dispo: Pt currently requires inpatient admission for management of her emergent condition. Visit type - Emergency Visit Emergency Visit: Yes ED Registration Date: 03/04/17 Care time: The patient presented to the Emergency Department on the above date and was hospitalized for further evaluation of their emergent condition. - New Patient This patient is new to me today: No - Critical Care Critical Care patient: No - Discharge Referral Referred to [facility] No
[2017-03-07] MEDS: cefTRIAXone 1 GM/50 ML BAG (PRE-DOCKED) IVPB SCH (21:36)
[2017-03-07] MEDS: diazePAM 5 MG TABLET PO PRN (21:37)
[2017-03-07] MEDS: LATANOPROST 0.005% OPHTH SOLN 2.5ML BOTTLE OU SCH (21:38)
[2017-03-08 06:17] VITALS: BP 136/49; PULSE 66; TEMP 98
--- NOTE | 2017-03-08 07:30 | PN ---
Progress Note, Physician History of Present Illness: pulmonary alert,nad,less cough,-hemoptysis - Current Medication List Current Medications: Active Medications Acetaminophen (Tylenol -) 650 mg PO Q4H PRN PRN Reason: FEVER OR PAIN Albuterol/Ipratropium (Duoneb -) 1 amp NEB Q6H PRN PRN Reason: SHORTNESS OF BREATH Last Admin: 03/05/17 14:35 Dose: 1 amp Amlodipine Besylate (Norvasc -) 10 mg PO DAILY [facility] Last Admin: 03/07/17 10:15 Dose: 10 mg Artificial Tears (Artificial Tears) 1 drop OS QID [facility] Last Admin: 03/07/17 21:37 Dose: 1 drop Aspirin (Ecotrin -) 81 mg PO DAILY [facility] Last Admin: 03/07/17 10:14 Dose: 81 mg Azithromycin (Zithromax -) 250 mg PO DAILY [facility] Stop: 03/08/17 14:00 Last Admin: 03/07/17 10:17 Dose: 250 mg Ceftriaxone Sodium (Rocephin 1gm Ivpb (Pre-Docked)) 1 gm IVPB [facility] Last Admin: 03/07/17 21:36 Dose: 1 gm Cholecalciferol (Vitamin D3 -) 2,000 unit PO DAILY [facility] Last Admin: 03/07/17 10:13 Dose: 2,000 unit Diazepam (Valium -) 2.5 mg PO DAILY PRN PRN Reason: ANXIETY Last Admin: 03/07/17 21:37 Dose: 2.5 mg Dorzolamide HCl (Trusopt 2%) 1 drop OU BID [facility] Last Admin: 03/07/17 21:38 Dose: 1 drop Escitalopram Oxalate (Lexapro -) 5 mg PO DAILY [facility] Last Admin: 03/07/17 10:16 Dose: 5 mg Heparin Sodium (Porcine) (Heparin -) 5,000 unit SQ BID [facility] Last Admin: 03/07/17 21:37 Dose: 5,000 unit Latanoprost (Xalatan 0.005% Eye Drops -) 1 drop OU HS [facility] Last Admin: 03/07/17 21:38 Dose: 1 drop Potassium Chloride (K-Dur -) 20 meq PO DAILY [facility] Last Admin: 03/07/17 10:16 Dose: 20 meq Ranitidine HCl (Zantac -) 150 mg PO BID [facility] Last Admin: 03/07/17 21:38 Dose: 150 mg Timolol Maleate (Timoptic 0.5%) 1 drop OU BID [facility] Last Admin: 03/07/17 21:37 Dose: 1 drop Valsartan (Diovan -) 320 mg PO DAILY [facility] Last Admin: 03/07/17 10:13 Dose: 320 mg - Objective Vital Signs: Vital Signs Temperature 98.0 F 03/08/17 06:00 Pulse Rate 66 03/08/17 06:00 Respiratory Rate 20 03/08/17 06:00 Blood Pressure 136/49 03/08/17 06:00 O2 Sat by Pulse Oximetry (%) 98 03/08/17 06:00 Constitutional: Yes: Well Nourished, Calm Eyes: Yes: WNL HENT: Yes: WNL Neck: Yes: WNL Cardiovascular: Yes: Regular Rate and Rhythm, S1, S2 Respiratory: Yes: Rales (few bibasilar crackles) Gastrointestinal: Yes: Normal Bowel Sounds, Soft Extremities: Yes: WNL Edema: No Labs: CBC, BMP Problem List - Problems (1) Hemoptysis Code(s): R04.2 - HEMOPTYSIS (2) Pneumonia Code(s): J18.9 - PNEUMONIA, UNSPECIFIED ORGANISM Qualifiers: Pneumonia type: due to unspecified organism Laterality: right Lung location: middle lobe of lung Qualified Code(s): J18.1 - Lobar pneumonia , unspecified organism (3) Hypertension Code(s): I10 - ESSENTIAL (PRIMARY) HYPERTENSION (4) Hyponatremia Code(s): E87.1 - HYPO-OSMOLALITY AND HYPONATREMIA Assessment/Plan IMP RML CONSOLIDATION HEMOPTYSIS RESOLVED SSS S/P PPM HTN ANXIETY HYPONATREMIA IMPROVED PLAN ANTIBIOTICS INHALED BRONCHODILATORS O2 PRN F/U CHEST CT 6-8 WKS TO DOCUMENT RESOLUTION OF INFILTRATE/CONSOLIDATION DR PARKS Problem List - Problems (1) Hemoptysis Code(s): R04.2 - HEMOPTYSIS (2) Pneumonia Code(s): J18.9 - PNEUMONIA, UNSPECIFIED ORGANISM Qualifiers: Pneumonia type: due to unspecified organism Laterality: right Lung location: middle lobe of lung Qualified Code(s): J18.1 - Lobar pneumonia, unspecified organism (3) Hypertension Code(s): I10 - ESSENTIAL (PRIMARY) HYPERTENSION (4) Hyponatremia Code(s): E87.1 - HYPO-OSMOLALITY AND HYPONATREMIA
[2017-03-08] MEDS: CHOLECALCIFEROL (VITAMIN D3) 1,000 UNIT TABLET (FP) PO SCH (10:00)
[2017-03-08] MEDS: amLODIPine BESYLATE 10 MG TABLET (FP) PO SCH (10:00)
[2017-03-08] MEDS: POTASSIUM CHLORIDE TABS 20 MEQ TABLET.ER (FP) PO SCH (10:00)
[2017-03-08] MEDS: ESCITALOPRAM OXALATE 10 MG TABLET (FP) PO SCH (10:00)
[2017-03-08] MEDS: AZITHROMYCIN 250 MG TABLET (FP) PO SCH (10:00)
[2017-03-08] MEDS: VALSARTAN 160 MG TABLET (UD) PO SCH (10:00)
[2017-03-08] MEDS: ARTIFICIAL TEARS (POLYVINYL ALCOHOL 1.4%) OPTH DROPS OS SCH (10:00)
[2017-03-08] MEDS: TIMOLOL 0.5% OPHTHALMIC SOL 5 ML BOTTLE OU SCH (10:01)
[2017-03-08] MEDS: DORZOLAMIDE 2% HCL OPHTHALMIC SOLUTION 10 ML BOTTLE OU SCH (10:01)
[2017-03-08] MEDS: RANITIDINE HCL 150 MG TABLET (FP) PO SCH (10:01)
[2017-03-08] MEDS: ASPIRIN COATED 81 MG TABLET.EC PO SCH (10:01)
--- NOTE | 2017-03-08 10:08 | DS ---
Physical Exam: SUBJECTIVE: Patient seen and examined OBJECTIVE: Vital Signs Period Temp Pulse Resp BP Sys/Harris Pulse Ox Last 24 Hr 97.7 F-98.2 F 60-66 16-20 112-136/49-56 98-100 PHYSICAL EXAM GENERAL: The patient is awake, alert, and fully oriented, in no acute distress. HEAD: Normal with no signs of trauma. EYES: PERRL, extraocular movements intact, sclera anicteric, conjunctiva clear. ENT: Ears normal, nares patent, oropharynx clear without exudates, moist mucous membranes. NECK: Trachea midline, full range of motion, supple. LUNGS: Breath sounds equal, clear to auscultation bilaterally, no wheezes, no crackles, no accessory muscle use. HEART: Regular rate and rhythm, S1, S2 without murmur, rub or gallop. ABDOMEN: Soft, nontender, nondistended, normoactive bowel sounds, no guarding, no rebound, no hepatosplenomegaly, no masses. EXTREMITIES: 2+ pulses, warm, well-perfused, no edema. NEUROLOGICAL: Cranial nerves II through XII grossly intact. Normal speech, gait not observed. PSYCH: Normal mood, normal affect. SKIN: Warm, dry, normal turgor, no rashes or lesions noted. LABS HOSPITAL COURSE: Date of Admission:03/04/17 Date of Discharge: 03/08/17 Minutes to complete discharge: 45 Discharge Summary Reason For Visit: PNEUMONIA/HEMOPTYSIS Current Active Problems Hemoptysis (Acute) Pneumonia (Acute) Condition: Stable - Instructions Referrals: Sina Mota MD [Primary Care Provider] - - Home Medications Comprehensive Discharge Medication List: Ambulatory Orders Dorzolamide HCl/Timolol Maleat [Cosopt Eye Drops] 1 gtt OP OU BID 12/19/12 Cholecalciferol (Vitamin D3) [Vitamin D3] 2,000 unit PO DAILY capsule 10/07/13 Olmesartan Medoxomil [Benicar -] 40 mg PO DAILY 05/15/16 Amlodipine Besylate 10 mg PO DAILY tablet 05/30/16 Valacyclovir HCl [Valtrex -] 1,000 mg PO BID 10/29/16 Bimatoprost [Lumigan] 1 drop OP OU HS bottle 11/02/16 Carboxymethylcellulose Sodium [Thera Tears] 1 drop OP OS QID bottle 11/02/16 - Discharge Referral Referred to [facility] No
== END 2017-03-08 11:25 | disposition home or self-care (01) | DRG 194 ==
LOC: FER 17:40 → FM/S 23:37 → UNDOADMIN 03-05 00:22 → FM/S 03-05 00:22
PROVIDERS: ADMIT Internal Medicine; ATTEND Nurse Practitioner Family
DX: J18.9 Pneumonia, unspecified organism (principal); E87.1 Hypo-osmolality and hyponatremia; I10 Essential (primary) hypertension; F41.9 Anxiety disorder, unspecified; Z95.0 Presence of cardiac pacemaker; Z87.891 Personal history of nicotine dependence; H40.9 Unspecified glaucoma
CPT/HCPCS: 36415; 71020-TC; 71275-TC; 80048; 80053; 81003; 82570; 83735; 83935; 84100; 85025; 85610; 85730; 87040; 87070; 87186; 87205; 87899; 93005; 94640; 97116-GP; 97162-GP; 99284-25; J1644